=== PATIENT | male | born 1970 | race Caucasian/White ===

== ENCOUNTER 2016-05-24 06:55 | Emergency (ER) | payer MEDICARE, MEDICAID ==
[2016-05-24 07:18] VITALS: BMI 28.4
[2016-05-24] MEDS ORDERED: HYDROmorphone 1 MG INJECTION IV ONE ×2 (07:54→08:30)
[2016-05-24] MEDS ORDERED: ONDANSETRON HCL 4 MG/2 ML VIAL IV ONE (08:01)
--- NOTE | 2016-05-24 08:51 | EDPRACDOC ---
- General Information Chief Complaint: Abdominal Pain Stated Complaint: BOWEL PROBLEM Time Seen by Provider: 05/24/16 07:53 Information Source: Patient Mode Of Arrival: Car Home Medications: Home Medications Imatinib Mesylate [Gleevec] 400 mg PO BID 07/09/12 Multivitamin [Multiple Vitamins] 1 tab PO DAILY 11/17/13 Vilazodone Hydrochloride [Viibryd] 40 mg PO BID 03/29/16 Acetaminophen Ex Str Tablet [TYLENOL EXTRA STRENGTH Tablet] 1,000 mg PO TID PRN 05/24/16 Alprazolam [Xanax] 1 mg PO HS 05/24/16 Dicyclomine HCl [Bentyl] 10 mg PO BID 05/24/16 Duloxetine HCl [Cymbalta] 30 mg PO BID 05/24/16 Fluticasone/Salmeterol [Advair 250-50] 1 inh INH BID 05/24/16 Gabapentin [Neurontin] 300 mg PO TID 05/24/16 Nitroglycerin [Nitrostat] 0.4 mg SL Q5MX3 PRN 05/24/16 Ondansetron [Zofran Odt] 4 mg PO Q6H PRN 05/24/16 Oxycodone HCl [Oxycodone Immediate Release] 15 mg PO TID PRN 05/24/16 Prednisone [Deltasone, Orasone] 5 mg PO BID 05/24/16 Prochlorperazine [Compazine] 5 - 10 mg PO Q6H PRN 05/24/16 Tamsulosin HCl [Flomax] 0.4 mg PO DAILY 05/24/16 Tapentadol HCl [Nucynta ER] 100 mg PO Q12H PRN 05/24/16 Tramadol HCl [Ultram] 100 mg PO Q6H 05/24/16 Zolpidem Tartrate [Ambien] 10 mg PO HS PRN 05/24/16 Allergies/Adverse Reactions: Allergies Allergy/AdvReac Type Severity Reaction Status Date / Time latex [Latex] Allergy Intermediate RASH Verified 05/24/16 07:18 metronidazole [From Flagyl] Allergy Intermediate Difficulty Verified 05/24/16 07 :18 Breathing Metronidazole HCl Allergy Intermediate Difficulty Verified 05/24/16 07:18 [From Flagyl] Breathing Penicillins Allergy Intermediate Difficulty Verified 05/24/16 07:18 Breathing promethazine HCl Allergy Intermediate Difficulty Verified 05/24/16 07:18 [From Phenergan] Breathing MUSHROOMS Allergy Intermediate RASH Uncoded 05/24/16 07:18 PEANUTS Allergy Intermediate BREAKS OUT Uncoded 05/24/16 07:18 - History of Present Illness Onset: SEVERAL DAYS HPI: HE STATES HE FEELS LIKE HE HAS ANOTHER BOWEL BLOCKAGE, STATES NG TUBE WILL HELP. Pain Location: Reports: Diffuse, Epigastric Pain Context: Reports: Spontaneous Pain Severity: Moderate Pain Quality: Reports: Aching, Burning, Colicky, Cramping Pain Radiation: Reports: No Radiation Adult Abdominal History: Reports: Bowel Obstruction, Similar Pain (dx) Modifying Factors: improves with: Nothing Associated Signs & Symptoms: Reports: Nausea, Vomiting, Anorexia. Denies: Diarrhea (NO RECENT BOWEL MOVEMENT OR FLATUS), Dysuria, Fever Oral Intake: Decreased Urinary Output: Decreased Other History: RECENT TRANSFER TO [facility] FOR SAME, NONOPERATIVE MANAGEMENT THEN. ED Past Medical History - History Reviewed Yes Nurses notes reviewed and agree except as marked - Patient Medical History Neurological History: Denies: Cerebrovascular Accident, Seizures Cardiac History: Reports: Hypertension, Syncope. Denies: Coronary Artery Disease, Atrial Fibrillation Respiratory History: Reports: Asthma, COPD, Pulmonary Embolism (July 2015. On Xarelto therapy.) GI/ History: Reports: Kidney Stones, Gastroesophageal Reflux, Pancreatitis Musculoskeletal History: Denies: Arthritis, Gout Psychological History: Reports: Depression, Anxiety, Substance Use Disorder Systemic History: Reports: Cancer (BRYANT SYNDROME (Desmoid).), Anemia (Iron deficiency), Diabetes Additional Past Medical History: CHRONIC NARCOTIC USE WITH CHRONIC PAIN Surgical History: Reports: Cholecystectomy, Hernia Surgery, Other (As above including total colectomy, liver resection and desmoid tumor resec) Date of Last Chemotherapy Date: SEPTEMBER 2014 - Family Medical History Reports: Hypertension (dad), Diabetes (grandparents), Cancer (dad w/ Crowell syndrome, mom w/ pancreatic cancer, son of neuroblastoma). Denies: Stroke , Cardiac Disorders - Social Medical History Smoking Status: Former smoker Social History: Reports: Substance Use Disorder EDM Review of Systems - Review of Systems ROS Negative Except as Marked: Yes All systems reviewed and were negative except as marked - Physical Exam Constitutional: Alert, Distress, Restless, Writhing Oriented to: Time, Person, Place Last recorded Vital Signs: Last Vital Signs Temp 97.7 F 05/24/16 07:09 Pulse 81 05/24/16 09:37 Resp 18 05/24/16 09:37 BP 129/78 05/24/16 09:37 Pulse Ox 98 05/24/16 09:37 Oxygen Pulse Oxygen Saturation 98 O2 Device Room Air Oxygen Flow Rate Fraction of Inspired Oxygen ( FIO2) - HEENT Head: Normal Eye Exam: Normal. negative: Pale Conjunctiva, Scleral Icterus Oropharynx: Normal. negative: Membranes Dry Nose: No Symptoms Reported Neck: Normal - Respiratory/Cardiovascular Respiratory: Normal - CTA Cardiovascular: Normal - GI Auscultation: Normal Palpation: Normal Tenderness: Diffuse, Moderate. negative: Guarding, Rebound, Rigidity Mar's Sign: Negative - Bladder: Normal - Musculoskeletal Back: Normal Extremities: Normal - Integumentary Skin: Warm, Dry, Pale - Neurologic Memory Impaired: Normal Motor Function: Normal Mood Description: Anxious Thought: Coherent Perception: Normal - Re-evaluation Re-evaluation 2 Re-evaluation Time: 10:03 PT APPEARS WELL, ON SMARTPHONE, STATES HE IS STILL UNCOMFORTABLE. NO VOMITING SINCE ARRIVAL. NGT IN PLACE, APPROX 300 GREEN BILIOUS FLUID OUT. Temperature: 97.7 F (05/24/16 07:09) HR: 81 (05/24/16 09:37)RR: 18 (05/24/16 09: 37) BP: 129/78 (05/24/16 09:37)Pulse Ox: 98 (05/24/16 09:37) ABD MILD TO MOD DIFFUSE TTP. NO PERITONEAL SIGNS. - Results 05/24/16 08:50 05/24/16 08:50 WBC 13.0 xk/uL (3.8-10.8) H 05/24/16 08:50 RBC 4.98 xM/uL (4.70-6.10) 05/24/16 08:50 Hgb 11.9 g/dL (14.0-18.0) L 05/24/16 08:50 Hct 36.9 % (42-52) L 05/24/16 08:50 MCV 74 fL (80-94) L 05/24/16 08:50 MCH 23.8 pg (27-32) L 05/24/16 08:50 MCHC 32.2 g/dl (33-36) L 05/24/16 08:50 RDW 15.4 % (11.5-14.5) H 05/24/16 08:50 Plt Count 341 xk/uL (130-400) 05/24/16 08:50 MPV 8.1 fL (7.4-10.4) 05/24/16 08:50 Neut % (Auto) 75.0 % (45-76) 05/24/16 08:50 Lymph % (Auto) 16.8 % (17-44) L 05/24/16 08:50 Trego % (Auto) 5.0 % (3-10) 05/24/16 08:50 Eos % (Auto) 2.7 % (0-5) 05/24/16 08:50 Baso % (Auto) 0.5 % (0-2) 05/24/16 08:50 Absolute Neuts (auto) 9.75 xk/uL (1.7-8.2) H 05/24/16 08:50 Absolute Lymphs (auto) 2.08 xk/uL (0.65-4.75) 05/24/16 08:50 Atypical Lymphocytes Occ 05/24/16 08:50 Platelet Estimate Norm (NORMAL) 05/24/16 08:50 RBC Morphology 1+ hypo 1+ micro 1+ ellipto 1+ aniso 05/24/16 08:50 RBC Morphology 1+ hypo 1+ micro 1+ ellipto 1+ aniso 05/24/16 08:50 RBC Morphology 1+ hypo 1+ micro 1+ ellipto 1+ aniso 05/24/16 08:50 RBC Morphology 1+ hypo 1+ micro 1+ ellipto 1+ aniso 05/24/16 08:50 Sodium 141 mEq/L (137-146) 05/24/16 08:50 Potassium 3.9 mEq/L (3.5-5.1) 05/24/16 08:50 Chloride 105 mEq/L (98-107) 05/24/16 08:50 Carbon Dioxide 21 mMOL/L (22-33) L 05/24/16 08:50 Anion Gap 19 mEq/L (8-16) H 05/24/16 08:50 BUN 13 MG/DL (9-20) 05/24/16 08:50 Creatinine 1.10 MG/DL (0.66-1.25) 05/24/16 08:50 Estimated GFR (MDRD) > 60 mL/min (>=60) 05/24/16 08:50 Glucose 96 MG/DL (70-99) 05/24/16 08:50 Calculated Osmolality 271 MOs/Kg (270-290) 05/24/16 08:50 Calcium 9.4 MG/DL (8.4-10.2) 05/24/16 08:50 Total Bilirubin 0.7 MG/DL (0.2-1.3) 05/24/16 08:50 AST 30 IU/L (17-59) 05/24/16 08:50 ALT 56 IU/L (21-72) 05/24/16 08:50 Alkaline Phosphatase 82 IU/L (38-126) 05/24/16 08:50 Total Protein 7.0 G/DL (6.3-8.2) 05/24/16 08:50 Albumin 4.1 G/DL (3.5-5.0) 05/24/16 08:50 Lab Results 05/24/16 05/24/16 08:50 08:50 WBC 13.0 H RBC 4.98 Hgb 11.9 L Hct 36.9 L MCV 74 L MCH 23.8 L MCHC 32.2 L RDW 15.4 H Plt Count 341 MPV 8.1 Neut % (Auto) 75.0 Lymph % (Auto) 16.8 L Trego % (Auto) 5.0 Eos % (Auto) 2.7 Baso % (Auto) 0.5 Absolute Neuts (auto) 9.75 H Absolute Lymphs (auto) 2.08 Atypical Lymphocytes Occ Platelet Estimate Norm RBC Morphology 1+ aniso Sodium 141 Potassium 3.9 Chloride 105 Carbon Dioxide 21 L Anion Gap 19 H BUN 13 Creatinine 1.10 Estimated GFR (MDRD) > 60 Glucose 96 Calculated Osmolality 271 Calcium 9.4 Total Bilirubin 0.7 AST 30 ALT 56 Alkaline Phosphatase 82 Total Protein 7.0 Albumin 4.1 - Diagnostic Imaging Abdomen Image interpreted by: Radiologist 05/24/16 09:34 Patient Name: BERNY METZ LOC: ED : 1970 AGE: 46 Order Date:05/24/16 Date of Service:06/09 Report # [id number] Ord Physician: Trina Joseph MD Exam # [id number] Emergency Physician: Trina Joseph MD Exam(s): [id number] RAD/DG ACUTE ABDOMEN/3WAY CLINICAL DATA: Small bowel obstruction. EXAM: DG ABDOMEN ACUTE W/ 1V CHEST COMPARISON: May 08, 2016. FINDINGS: There is no evidence of free intraperitoneal air. Mildly dilated small bowel loops are noted with air-fluid levels suggesting possible ileus or distal small bowel obstruction. Status post cholecystectomy. Left ureteral stent is noted. Nasogastric tube tip is seen in proximal stomach. Heart size and mediastinal contours are within normal limits. Both lungs are clear. Left subclavian Port-A-Cath is noted with distal tip in expected position of the SVC. IMPRESSION: Mildly dilated small bowel loops are noted with air-fluid levels suggesting ileus or distal small bowel obstruction. Followup radiographs are recommended. No acute cardiopulmonary disease. Electronically Signed By: Socrates Jansen Jr, M.D. On: 05/24/2016 09:22 Electronically Signed By: Socrates Jansen MD Electronically Signed Date/Time: [id number] Dictate Date/Time: 05/24/16917 Technologist: Jodee Brown Transcribed By: Fabio Transcribed Date/Time: 05/24/16921 - Additional Information COMPLEX ABD HISTORY AND RECURRENT SBO. DECISION FOR SURGICAL CARE BEST DETERMINED AT [facility]. GIVEN RECENT EVAL AT [facility], WILL DISCUSS WITH [facility]. - Departure Disposition: Trans. to Other Hospital Condition: Stable Final Diagnosis: Small bowel obstruction Education/Counseling Given To: Patient Education/Counseling Given Regarding: Diagnosis, Treatment, Prognosis Referrals: Kam Cortes MD [Primary Care Provider] - As Needed Decision to Transfer Time: 10:13 - Physician Consulted ED ATTEND Time Called: 10:00 Provider Called: CARLA Time Toxicologist Returned Call: 10:13 (ACCEPTS IN TRANSFER TO ED)
[2016-05-24 09:04] LABS: AUTOMATED BASOPHIL 0.5 % (0-2); AUTOMATED EOSINOPHIL 2.7 % (0-5); AUTOMATED LYMPH 16.8 % (17-44); MPV 8.1 fL (7.4-10.4)
[2016-05-24 09:11] LABS: BLOOD UREA NITROGEN 13 MG/DL (9-20); CALCIUM 9.4 MG/DL (8.4-10.2); CALCULATED OSMOLALITY 271 MOs/Kg (270-290); CHLORIDE 105 mEq/L (98-107); GLUCOSE 96 MG/DL (70-99); SODIUM LEVEL 141 mEq/L (137-146)
--- NOTE | 2016-05-24 09:25 | DIRPT ---
CLINICAL DATA: Small bowel obstruction. EXAM: DG ABDOMEN ACUTE W/ 1V CHEST COMPARISON: May 08, 2016. FINDINGS: There is no evidence of free intraperitoneal air. Mildly dilated small bowel loops are noted with air-fluid levels suggesting possible ileus or distal small bowel obstruction. Status post cholecystectomy. Left ureteral stent is noted. Nasogastric tube tip is seen in proximal stomach. Heart size and mediastinal contours are within normal limits. Both lungs are clear. Left subclavian Port-A-Cath is noted with distal tip in expected position of the SVC. IMPRESSION: Mildly dilated small bowel loops are noted with air-fluid levels suggesting ileus or distal small bowel obstruction. Followup radiographs are recommended. No acute cardiopulmonary disease. Electronically Signed By: Socrates Jansen Jr, M.D. On: 05/24/2016 09:22
[2016-05-24 10:57] LABS: LEUKOCYTES/URINE 2+ (NEGATIVE); NITRITE/URINE NEG (NEGATIVE); RBC/URINE TNTC (0-2); URINE OCCULT BLOOD 3+ (NEG/TRACE)
[2016-05-24 10:59] VITALS: BP 133/62; PULSE 80; TEMP 98.1
== END 2016-05-24 11:00 | disposition short-term general hospital (02) ==
LOC: ED 06:55
DX: K56.69 Other intestinal obstruction (principal); I10 Essential (primary) hypertension; J45.909 Unspecified asthma, uncomplicated; J44.9 Chronic obstructive pulmonary disease, unspecified; K21.9 Gastro-esophageal reflux disease without esophagitis; F41.9 Anxiety disorder, unspecified; F32.9 Major depressive disorder, single episode, unspecified; Z87.891 Personal history of nicotine dependence; Z90.49 Acquired absence of other specified parts of digestive tract; Z79.01 Long term (current) use of anticoagulants; Z86.711 Personal history of pulmonary embolism
CPT/HCPCS: 36415; 74022; 80053; 81001; 85025; 96374; 96375; 96376; 99284; J1170; J2405